=== PATIENT | male | born 1995 | race African-American/Black ===

== ENCOUNTER 2023-05-01 05:03 | Emergency (ER) | payer OTHER ==
[~2023-05-01] VITALS: Ht 182.9 cm; Wt 72.6 kg
[2023-05-01 05:45] LABS: PLATELET COUNT 172 K/uL (142-355)
[2023-05-01 05:54] LABS: POTASSIUM 3.6 mmol/L (3.6-5.2)
[2023-05-01 06:00] LABS: PARTIAL THROMBOPLASTIN TIME 29.2 SECONDS (23.9-36.7)
== END 2023-05-01 06:54 | disposition home or self-care (01) ==
LOC: ED 05:03
PROVIDERS: Family Medicine
DX: R07.9 Chest pain, unspecified (principal)
CPT/HCPCS: 36415; 80053; 80307; 81002; 82150; 82550; 83690; 84484; 85027; 85610; 85730; 93005; 96374; 99284; J1885